=== PATIENT | male | born 1965 ===

== ENCOUNTER → 2021-06-04 | Outpatient (REF) | LOC: M PLAIMG 09:59 | PROVIDERS: ATTEND Internal Medicine | DX: R06.02 Shortness of breath (principal) ==

== ENCOUNTER → 2022-07-30 | Outpatient (REF) | LOC: M PLAIMG 10:51 | PROVIDERS: ATTEND Internal Medicine | DX: R06.02 Shortness of breath (principal) ==

== ENCOUNTER → 2024-05-24 | Outpatient (REF) | LOC: M PLAIMG 09:47 | PROVIDERS: ATTEND Internal Medicine | DX: R52 Pain, unspecified (principal) ==